=== PATIENT | male | born 1970 | race Caucasian/White ===

== ENCOUNTER 2018-02-18 15:50 | Inpatient (IN) ==
[2018-02-18] MEDS ORDERED: Bisacodyl 10 MG Supp RECTAL PRN (18:10)
[2018-02-18] MEDS ORDERED: Acetaminophen 325 MG Tablet PO PRN (18:10)
[2018-02-18] MEDS ORDERED: Sodium Chlor 0.9% Inj 250 ML IV.SIG SCH ×2 (19:00→22:00)
--- NOTE | 2018-02-18 21:29 | P.HPIM ---
History of Present Illness Service: [facility] Primary Care Physician: Cara Aguila Chief Complaint: fatigue History of Present Illness: 47 y/o male with a history HTN, HLD, hemolytic anemia presented to the ER with complaints of fatigue. He was seen in the [place] [facility] and found to have a hemoglobin of 6.9 and Hemoccult positive. He states he has not been taking his iron tablets for the last 2 years. He states for the past 7 days he has been having weakness, dyspnea on exertion and fatigue that has been increasing. He states he was diagnosed 7 years ago with anemia that required a blood transfusion due to a virus and was prescribed iron tablets. He denies any chest pain, shortness of breath, fever, chills, headache , dizziness, abdominal pain. He states his stools have been dark and he does consume ibuprofen almost daily. Review of Systems Review of Systems: all other systems reviewed are negative [facility] Medical History Medical History Anemia (Acute) High cholesterol (Acute) History of blood transfusion (Acute) Surgical History Surgical History H/O hernia repair (Acute) Family History Family History Other HTN (hypertension) Social History Social History Substance History: No History of Abuse Second Hand Smoke Exposure: No Smoking Status: Former smoker How Often Do You Have a Drink Containing Alcohol: Monthly or less Recent Travel in [facility] within the Last 8 Weeks: No Recent Out of Country Travel within the Last 8 Weeks: No Immunization History Tetanus Immunization: <5 Years Hx Influenza Vaccine This Season: No Medications and Allergies Allergies Allergy/AdvReac Type Severity Reaction Status Date / Time No Known Allergies Allergy Verified 02/18/18 16:02 Home Medications Medication Instructions Recorded Confirmed Type atorvastatin [Lipitor] 20 mg PO DAILY 02/18/18 02/18/18 History olmesartan [Benicar] 40 mg PO DAILY 02/18/18 02/18/18 History Active Medications: Active Medications Acetaminophen (Tylenol) 650 mg PO Q4H PRN PRN Reason: Temp > 100.4 Al Hydroxide/Mg Hydroxide (Milk Of Magnesia Liq) 30 ml PO Q12H PRN PRN Reason: Mild Constipation Bisacodyl (Dulcolax Supp) 10 mg RECTAL DAILY PRN PRN Reason: SEVERE CONSITIPATION Sodium Chloride (Ns Inj) 250 mls @ 15 mls/hr IV.SIG ONCE [facility]ATH[facility]INE Stop: 02/19/18 11:39 Pantoprazole Sodium 80 mg/ (Sodium Chloride) 100 mls @ 10 mls/hr IV.CONT CONT CATHERINE Sodium Chloride (Ns Inj) 250 mls @ 15 mls/hr IV.SIG ONCE [facility] Stop: 02/19/18 14:39 Lactulose (Lactulose Liq) 30 ml PO DAILY PRN PRN Reason: SEVERE CONSITIPATION Ondansetron HCl (Zofran Inj) 4 mg IV.PUSH Q6H PRN PRN Reason: NAUSEA OR VOMITING Senna/Docusate Sodium (Camille-Colace) 1 tab PO BID [facility] Sennosides (Senokot) 17.2 mg PO Q12H PRN PRN Reason: Moderate Constipation Sodium Chloride (Ns Flush) 2 ml IV.FLUSH BID [facility] Sodium Chloride (Ns Flush) 2 ml IV.FLUSH PRN PRN PRN Reason: FLUSH AFTER USING IV ACCESS Physical Exam Vital signs: Intake & Output 02/16/18 02/17/18 02/18/18 02/19/18 06:59 06:59 06:59 06:59 Weight 98.8 kg Narrative: GENERAL: well nourished patient in no distress SKIN: Warm and dry. pale. EYES: No scleral icterus. No injection or drainage. NECK: Supple, trachea midline. No JVD or lymphadenopathy. CARDIOVASCULAR: Regular rate and rhythm without murmurs, gallops, or rubs. RESPIRATORY: Breath sounds equal bilaterally. No accessory muscle use. GASTROINTESTINAL: Abdomen soft, non-tender, nondistended. MUSCULOSKELETAL: No cyanosis, or edema. Moves all extremities. Caprini VTE Risk Assessment Caprini VTE Risk Assessment: No/Low Risk (score <= 1) Caprini Risk Assessment Model: Point Value = 1 Point Value = 2 Point Value = 3 Point Value = 5 Age 41-60 Minor surgery BMI > 25 kg/m2 Swollen legs Varicose veins or History of unexplained or recurrent spontaneous Oral contraceptives or hormone replacement Sepsis (< 1 month) Serious lung disease, including pneumonia (< 1 month) Abnormal pulmonary function Acute myocardial infarction Congestive heart failure (< 1 month) History of inflammatory bowel disease Medical patient at bed rest Age 61-74 Arthroscopic surgery Major open surgery (> 45 min) Laparoscopic surgery (> 45 min) Malignancy Confined to bed (> 72 hours) Immobilizing plaster cast Central venous access Age >= 75 History of VTE Family history of VTE Factor V Leiden Prothrombin [id number] Lupus anticoagulant Anticardiolipin antibodies Elevated serum homocysteine Heparin-induced thrombocytopenia Other congenital or acquired thrombophilia Stroke (< 1 month) Elective arthroplasty Hip, pelvis, or leg fracture Acute spinal cord injury (< 1 month) Prophylaxis Regimen: Total Risk Factor Score Risk Level Prophylaxis Regimen 0-1 Low Early ambulation 2 Moderate Order ONE of the following: *Sequential Compression Device (SCD) *Heparin 5000 units SQ BID 3-4 Higher Order ONE of the following medications: *Heparin 5000 units SQ TID *Enoxaparin/Lovenox 40 mg SQ daily (WT < 150 kg, CrCl > 30 mL/min) *Enoxaparin/Lovenox 30 mg SQ daily (WT < 150 kg, CrCl > 10-29 mL/min) *Enoxaparin/Lovenox 30 mg SQ BID (WT < 150 kg, CrCl > 30 mL/min) AND/OR *Sequential Compression Device (SCD) 5 or more Highest Order ONE of the following medications: *Heparin 5000 units SQ TID (Preferred with Epidurals) *Enoxaparin/Lovenox 40 mg SQ daily (WT < 150 kg, CrCl > 30 mL/min) *Enoxaparin/Lovenox 30 mg SQ daily (WT < 150 kg, CrCl > 10-29 mL/min) *Enoxaparin/Lovenox 30 mg SQ BID (WT < 150 kg, CrCl > 30 mL/min) AND *Sequential Compression Device (SCD) Assessment and Plan Plan 47-year-old male with a history of hypertension hyperlipidemia and hemolytic anemia presented to the ED with complaints of weakness, dyspnea on exertion, fatigue for the last 7 days. Anemia, hemoglobin 6.9 Hemoccult positive in the ED -Consult to hematology for hx of hemolytic anemia -Consult to gastroenterology for Hemoccult positive -Protonix drip -Transfuse 1 unit of packed red cells -Serial H&H -Direct Renea, iron panel and ferritin ordered Hypertension, chronic -Resume home medications, monitor vitals Hyperlipidemia -Resume home medications DVT prophylaxis: SCDs H&P: Quality VTE Deep Vein Thrombosis/Pulmonary Embolism Present on Admission: No
[2018-02-18] MEDS: Senna/Docusate Sodium 8.6/50 MG Tablet PO SCH (23:35)
[2018-02-19] MEDS: Pantoprazole Inj 80 MG in Sodium Chlor 0.9% Inj 100 ML IV.CONT SCH ×2 (01:33→12:43)
[2018-02-19 05:53] LABS: Baso # (Auto) 0.1 th/mm3 (0.0-0.2); Baso % (Auto) 1.2 % (0.0-2.0); Eos # (Auto) 0.2 th/mm3 (0.0-0.4); Eos % (Auto) 2.1 % (0.0-4.0); Hematocrit 27.5 % (39.0-51.0); Hemoglobin 8.8 gm/dL (13.0-17.0); Lymph # (Auto) 2.7 th/mm3 (1.0-4.8); Lymph % (Auto) 36.1 % (9.0-44.0); Mean Corpuscular HGB Conc 31.9 % (32.0-36.0); Mean Corpuscular Hemoglobin 23.8 pg (27.0-34.0); Mean Corpuscular Volume 74.5 fL (80.0-100.0); Mean Platelet Volume 7.1 fL (7.0-11.0); Mono # (Auto) 0.7 th/mm3 (0.0-0.9); Mono % (Auto) 8.9 % (0.0-8.0); Neut # (Auto) 3.8 th/mm3 (1.8-7.7); Neut % (Auto) 51.7 % (16.0-70.0); Platelet Count 363 th/mm3 (150-450); Red Blood Count 3.69 mil/mm3 (4.50-5.90); White Blood Count 7.4 th/mm3 (4.0-11.0)
[2018-02-19 06:25] LABS: Anion Gap 8 meq/L (5-15); Blood Urea Nitrogen 13 mg/dL (7-18); Calcium 7.5 mg/dL (8.5-10.1); Chloride 108 meq/L (98-107); Glomerular Filtration Rate Greater Than 89 mL/min (>89); Glucose,Random 80 mg/dL (74-106); Iron 40 mcg/dL (65-175); Potassium 3.6 meq/L (3.5-5.1); Sodium 142 meq/L (136-145)
[2018-02-19 06:28] LABS: % Iron Saturation 8.7 % (20-50); Complement C3 101 mg/dL (90-180); Ferritin 3 ng/mL (26-388); Total Iron Binding Capacity 458 mcg/dL (250-450)
--- NOTE | 2018-02-19 08:30 | P.PNIM ---
Subjective Interval history: f/u; anemia in no acute distress. feels better today. no abdominal pain, nausea or vomiting. no chest pain, sob or dizziness. Physical Exam Vital signs: Last Vital Signs Temp 97.8 F 02/19/18 04:00 Pulse 64 02/19/18 04:00 Resp 16 02/19/18 04:00 BP 108/57 L 02/19/18 04:00 Pulse Ox 97 02/19/18 04:00 Intake & Output 02/17/18 02/18/18 02/19/18 02/20/18 06:59 06:59 06:59 06:59 Intake Total 580 / 580 Output Total 400 / 400 Balance 180 / 180 Weight 94.7 kg Constitutional no acute distress Routine Respiratory Exam Present CTA bilaterally Routine Cardiovascular Exam Present RRR Routine Abdominal Exam Present soft Routine Extremities Exam Comments: no pedal edema. Routine Neurological Exam Present alert and oriented X3 Results Labs CBC & Chem 7: 02/19/18 03:50 02/19/18 03:50 Assessment and Plan Plan A/P Anemia- due to acute blood loss - iron deficiency Hemoccult positive in the ED -s/p PRBC transfusion with improved H/H -Consulted hematology for hx of hemolytic anemia -Consulted gastroenterology for Hemoccult positive -Protonix drip Hypertension, chronic -Resume home medications when meds verified, monitor vitals Hyperlipidemia -Resume home medications when verified. DVT prophylaxis: SCDs Progress Note: Quality VTE Deep Vein Thrombosis/Pulmonary Embolism Present on Admission: No
[2018-02-19] MEDS: Senna/Docusate Sodium 8.6/50 MG Tablet PO SCH ×2 (09:13→20:34)
--- NOTE | 2018-02-19 10:28 | P.CONGI ---
History of Present Illness Consult date: 02/19/18 Consult reason: Heme positive stool Chief complaint: Anemia requiring Transfusion History of Present Illness: This patient is a 47-year-old male with past medical history significant for hypertension, hyperlipidemia and iron deficiency anemia. Patient presented to the emergency room in [place] with report of generalized weakness and fatigue. Patient was found to have a hemoglobin of 6.9(which he was transfused with 1 unit of packed RBCs) and Hemoccult positive stools. Upon consultation, patient reports that he was diagnosed with iron deficiency anemia 15 years ago. Patient states he has required blood transfusion x1 in the past. States he had EGD and colonoscopy done in 2011 which revealed H. pylori. Patient states he was put on antibiotics from 7-14 days and was retested for cure. Patient endorses last EGD was done in 2014 with normal findings per his recollection. He endorses that he stopped taking iron supplements 2-1/2 years ago and then restarted 5 days ago after symptoms of weakness and fatigue persisted. Patient endorses generalized weakness and fatigue for 10-14 days. States that he has had black tarry stools for the last 5-6 days. Patient endorses epigastric burning pain on occasion for which he takes Tums. 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 Patient also endorses the use of ibuprofen for headaches. He states that over the last 3-4 weeks he has been taking 800 mg p.o. twice daily for neck and headaches that he feels may be attributed to his elevated blood pressure for which he takes Benicar/HCTZ. Our service has been consulted to evaluate patient for Hemoccult positive stools. <Shazia Jo - Last Filed: 02/19/18 19:24> Review of Systems All other systems reviewed negative except as stated in HPI <Shazia Jo - Last Filed: 02/19/18 19:24> PMFSH - History History Provided By: Patient, Medical Record - Medical History Medical History: Medical History (Last Reviewed 02/18/18 @ 23:10 by VANI Mcnulty) Anemia High cholesterol History of blood transfusion - Surgical History Surgical History: Surgical History (Last Reviewed 02/18/18 @ 23:11 by VANI Mcnulty) H/O hernia repair - Family History Family History: Family History (Last Reviewed 02/18/18 @ 23:11 by VANI Mcnulty) Other HTN (hypertension) - Tobacco History Second Hand Smoke Exposure: No Tobacco Use In Past 30 Days: No Smoking Status: Former smoker - Alcohol History How Often Do You Have a Drink Containing Alcohol: Monthly or less - Substance Use History Substance History: No History of Abuse - Travel History Recent Travel in the [place] Within the Last 8 Weeks: No Recent Travel Out of the Country Within the Last 8 Weeks: No - Immunization History Tetanus Immunization: <5 Years Hx Influenza Vaccine This Season: No <Shazia Jo - Last Filed: 02/19/18 19:24> - Medical History Medical History: Medical History (Last Reviewed 02/18/18 @ 23:10 by VANI Mcnulty) Anemia High cholesterol History of blood transfusion - Surgical History Surgical History: Surgical History (Last Reviewed 02/18/18 @ 23:11 by VANI Mcnulty) H/O hernia repair - Family History Family History: Family History (Last Reviewed 02/18/18 @ 23:11 by VANI Mcnulty) Other HTN (hypertension) <Jasson Aggarwal - Last Filed: 02/20/18 08:45> Medications and Allergies Active Medications: Active Medications Acetaminophen (Tylenol) 650 mg PO Q4H PRN PRN Reason: Temp > 100.4 Al Hydroxide/Mg Hydroxide (Milk Of Magnesia Liq) 30 ml PO Q12H PRN PRN Reason: Mild Constipation Bisacodyl (Dulcolax Supp) 10 mg RECTAL DAILY PRN PRN Reason: SEVERE CONSITIPATION Sodium Chloride (Ns Inj) 250 mls @ 15 mls/hr IV.SIG ONCE CATHERINE Stop: 02/19/18 11:39 Last Infusion: 02/19/18 06:12 Dose: Infused Pantoprazole Sodium 80 mg/ (Sodium Chloride) 100 mls @ 10 mls/hr IV.CONT CONT CATHERINE Last Admin: 02/19/18 01:33 Dose: 10 mls/hr Sodium Chloride (Ns Inj) 250 mls @ 15 mls/hr IV.SIG ONCE CATHERINE Stop: 02/19/18 14:39 Last Admin: 02/18/18 23:36 Dose: Not Given Lactulose (Lactulose Liq) 30 ml PO DAILY PRN PRN Reason: SEVERE CONSITIPATION Ondansetron HCl (Zofran Inj) 4 mg IV.PUSH Q6H PRN PRN Reason: NAUSEA OR VOMITING Senna/Docusate Sodium (Camille-Colace) 1 tab PO BID [facility] Last Admin: 02/19/18 09:13 Dose: Not Given Sennosides (Senokot) 17.2 mg PO Q12H PRN PRN Reason: Moderate Constipation Sodium Chloride (Ns Flush) 2 ml IV.FLUSH BID [facility] Last Admin: 02/19/18 09:10 Dose: Not Given Sodium Chloride (Ns Flush) 2 ml IV.FLUSH PRN PRN PRN Reason: FLUSH AFTER USING IV ACCESS <Shazia Jo - Last Filed: 02/19/18 19:24> Active Medications: Active Medications Acetaminophen (Tylenol) 650 mg PO Q4H PRN PRN Reason: Temp > 100.4 Al Hydroxide/Mg Hydroxide (Milk Of Magnesia Liq) 30 ml PO Q12H PRN PRN Reason: Mild Constipation Bisacodyl (Dulcolax Supp) 10 mg RECTAL DAILY PRN PRN Reason: SEVERE CONSITIPATION Pantoprazole Sodium 80 mg/ (Sodium Chloride) 100 mls @ 10 mls/hr IV.CONT CONT [facility] Last Admin: 02/20/18 02:15 Dose: 10 mls/hr Iron Sucrose 200 mg/ Sodium (Chloride) 110 mls @ 110 mls/hr IV.SIG DAILY [facility] Stop: 02/21/18 09:59 Last Infusion: 02/19/18 15:40 Dose: Infused Lactulose (Lactulose Liq) 30 ml PO DAILY PRN PRN Reason: SEVERE CONSITIPATION Ondansetron HCl (Zofran Inj) 4 mg IV.PUSH Q6H PRN PRN Reason: NAUSEA OR VOMITING Senna/Docusate Sodium (Camille-Colace) 1 tab PO BID [facility] Last Admin: 02/19/18 20:34 Dose: Not Given Sennosides (Senokot) 17.2 mg PO Q12H PRN PRN Reason: Moderate Constipation Sodium Chloride (Ns Flush) 2 ml IV.FLUSH BID [facility] Last Admin: 02/19/18 20:34 Dose: 2 ml Sodium Chloride (Ns Flush) 2 ml IV.FLUSH PRN PRN PRN Reason: FLUSH AFTER USING IV ACCESS <LorengladysJanieJasson - Last Filed: 02/20/18 08:45> Allergies Allergy/AdvReac Type Severity Reaction Status Date / Time No Known Allergies Allergy Verified 02/18/18 16:02 Home Medications Medication Instructions Recorded Confirmed Type atorvastatin [Lipitor] 20 mg PO DAILY 02/18/18 02/18/18 History olmesartan [Benicar] 40 mg PO DAILY 02/18/18 02/18/18 History Exam Vital signs: Vital Signs 02/18/18 20:00 02/18/18 22:33 02/18/18 22:48 Temperature 97.8 F 97.9 F 97.9 F Pulse Rate 79 82 83 Respiratory Rate 17 20 20 Blood Pressure 112/58 L 102/60 102/60 Pulse Oximetry 98 98 98 02/18/18 23:04 02/19/18 01:38 02/19/18 04:00 Temperature 97.9 F 97.3 F L 97.8 F Pulse Rate 78 78 64 Respiratory Rate 20 18 16 Blood Pressure 101/57 L 111/63 108/57 L Pulse Oximetry 97 98 97 02/19/18 08:00 Temperature 97.9 F Pulse Rate 73 Respiratory Rate 16 Blood Pressure 115/57 L Pulse Oximetry 97 Intake & Output 02/18/18 02/19/18 02/19/18 18:59 06:59 18:59 Intake Total 580 / 580 Output Total 400 / 400 Balance 180 / 180 Weight 94.7 kg Intake: IV 100 / 100 NS Inj 250 ML @ 15 mls/hr IV. 100 / 100 SIG ONCE [facility] Rx#:[id number] Oral 480 / 480 Intake (Blood Product) Amt 0 / 0 Rbc As-3 Leukoreduced Unit 0 / 0 [id number] Output: Urine 400 / 400 Other: Date of Last Bowel Movement 02/17/18 # Bowel Movements 0 Weight On Admission 93.8 kg - Constitutional no acute distress - Routine HEENT Exam Head: Present: normocephalic - Routine Respiratory Exam Present: CTA bilaterally. Absent: accessory muscle use - Routine Cardiovascular Exam Present: RRR, S1, S2 - Routine Extremities Exam Present: pulses intact. Absent: cyanosis, clubbing, edema - Routine Skin Exam Present: dry, warm. Absent: pallor - Routine Neurological Exam Present: alert, oriented X3 <SandroShazia - Last Filed: 02/19/18 19:24> Vital signs: Vital Signs 02/19/18 10:40 02/19/18 12:00 02/19/18 16:00 Temperature 97.3 F L 98.1 F Pulse Rate 67 81 Respiratory Rate 18 18 Blood Pressure 104/62 100/59 L Pulse Oximetry 95 98 96 02/19/18 20:00 02/19/18 23:50 02/20/18 04:00 Temperature 98.4 F 97.8 F 97.9 F Pulse Rate 82 82 77 Respiratory Rate 16 16 16 Blood Pressure 98/55 L 97/56 L 97/51 L Pulse Oximetry 98 96 97 Intake & Output 02/19/18 02/20/18 02/20/18 18:59 06:59 18:59 Intake Total 410 / 410 1660 / 1660 Output Total 400 / 400 1300 / 1300 Balance 360 / 360 Weight 94.8 kg Intake: IV 210 / 210 100 / 100 Protonix Inj 80 MG In NS Inj 100 / 100 100 / 100 100 ML @ 10 mls/hr IV.CONT CONT [facility] Rx#:[id number] Venofer Inj 200 MG In NS Inj 110 / 110 100 ML @ 110 mls/hr IV.SIG DAILY [facility] Rx#:[id number] Oral 1560 / 1560 Other 200 / 200 Output: Urine 400 / 400 1300 / 1300 Other: Date of Last Bowel Movement 02/17/18 02/19/18 # Bowel Movements 0 0 <Jasson Aggarwal - Last Filed: 02/20/18 08:45> Results - Labs CBC & Chem 7: 02/19/18 03:50 02/19/18 03:50 Labs: Laboratory Results - last 24 hr 02/18/18 02/19/18 02/19/18 18:10 03:50 03:50 WBC 7.4 RBC 3.69 L Hgb 8.8 L Hct 27.5 L MCV 74.5 L MCH 23.8 L MCHC 31.9 L RDW 18.0 H Plt Count 363 MPV 7.1 Neut % (Auto) 51.7 Lymph % (Auto) 36.1 [place] % (Auto) 8.9 H Eos % (Auto) 2.1 Baso % (Auto) 1.2 Neut # (Auto) 3.8 Lymph # (Auto) 2.7 [place] # (Auto) 0.7 Eos # (Auto) 0.2 Baso # (Auto) 0.1 WBC Differential . Differential Comment Auto diff final Sodium 142 Potassium 3.6 Chloride 108 H Carbon Dioxide 26.0 Anion Gap 8 BUN 13 Creatinine 0.70 Estimated GFR Greater than 89 Random Glucose 80 Calcium 7.5 L D Iron 40 L TIBC 458 H % Saturation 8.7 L Ferritin 3 L Complement C3 101 Complement C4 21 Direct Antiglob Test Negative MTS Gel Crossmatch See Detail <Shazia Jo - Last Filed: 02/19/18 19:24> - Labs CBC & Chem 7: 02/20/18 03:44 02/19/18 03:50 Labs: Laboratory Results - last 24 hr 02/19/18 02/20/18 15:43 03:44 Hgb 9.1 L 9.5 L Hct 28.4 L 29.9 L <Jasson Aggarwal - Last Filed: 02/20/18 08:45> Assessment and Plan (1) Anemia Status: Acute Code(s): D64.9 - Anemia, unspecified (2) Black tarry stools Status: Acute Code(s): K92.1 - Melena (3) Lower GI bleed Status: Acute Code(s): K92.2 - Gastrointestinal hemorrhage, unspecified - Plan This patient is a 47-year-old male with past medical history significant for hypertension, hyperlipidemia and iron deficiency anemia. Patient presented to the emergency room in [place] with report of generalized weakness and fatigue. Patient was found to have a hemoglobin of 6.9(which he was transfused with 1 unit of packed RBCs) and Hemoccult positive stools. Upon consultation, patient reports that he was diagnosed with iron deficiency anemia 15 years ago. Patient states he has required blood transfusion x1 in the past. States he had EGD and colonoscopy done in 2011 which revealed H. pylori. Patient states he was put on antibiotics from 7-14 days and was retested for cure. Patient endorses last EGD was done in 2014 with normal findings per his recollection. He endorses that he stopped taking iron supplements 2-1/2 years ago and then restarted 5 days ago after symptoms of weakness and fatigue persisted. Patient endorses generalized weakness and fatigue for 10-14 days. States that he has had black tarry stools for the last 5-6 days. Patient endorses epigastric burning pain on occasion for which he takes Tums. Denies nausea or vomiting. 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 Patient also endorses the use of ibuprofen for headaches. He states that over the last 3-4 weeks he has been taking 800 mg p.o. twice daily for neck and headaches that he feels may be attributed to his elevated blood pressure for which he takes Benicar/HCTZ. Our service has been consulted to evaluate patient for Hemoccult positive stools. Iron deficiency anemia Heme positive stools Lower GI bleed Patient endorses generalized weakness and fatigue for 2 weeks. Endorses history of iron deficiency anemia. Of note, patient stopped taking iron supplements 2-1/2 years ago. Hemoglobin found to be 6.9 with heme positive stools on arrival to emergency room. Patient was transfused with 1 unit of packed cells. Patient endorses epigastric burning occasionally with somewhat regular use over the last 3-4 weeks of ibuprofen 800 mg p.o. twice daily for neck and headaches. Black tarry stools for the last 5-6 days. Hemoglobin noted above found on arrival to ER. Posttransfusion WBC 7.4 hemoglobin 8.8 hematocrit 27.5 Iron 40 TIBC 458 saturation 8.7 ferritin 3 Plan -Diet as tolerated -N.p.o. after midnight -Obtain consent for EGD -Monitor for bleeding -Monitor hemoglobin hematocrit closely -Transfuse as needed -Avoid NSAIDs -Avoid anticoagulants -Continue PPI -Supportive care -Further recommendations to follow This patient has been seen by myself and Dr. Aggarwal and this note is written on his behalf - Attending Attestation Dr. Aggarwal <Shazia Jo - Last Filed: 02/19/18 19:24> (1) Anemia Status: Acute Code(s): D64.9 - Anemia, unspecified (2) Black tarry stools Status: Acute Code(s): K92.1 - Melena (3) Lower GI bleed Status: Acute Code(s): K92.2 - Gastrointestinal hemorrhage, unspecified - Attending Attestation The patient is seen and examined. I agree with the assessment and recommendations above. <Jasson Aggarwal - Last Filed: 02/20/18 08:45>
--- NOTE | 2018-02-19 10:31 | MB ---
cc: Miguelangel Rodriguez MD DATE: 02/19/2018 REQUESTING PHYSICIAN: Hospitalist. REASON FOR CONSULTATION: Evaluation of anemia. HISTORY OF PRESENT ILLNESS: A 47-year-old gentleman with hypertension and hyperlipidemia, was evaluated in [facility] ER when he was having severe weakness and tiredness and found to have a hemoglobin of 6.9 with stool occult blood positive. The patient was subsequently transferred to [facility] and admitted to the hospital. I was asked to see him for the above. Mr. Mooney gives me history of black stools for the last 4 days and has been not feeling well with weakness, tiredness, and his brother apparently pushed him to seek medical attention. Hence, he came to the hospital. He gave me the history that 5 years ago he had a similar problem requiring a blood transfusion while he was in [place] at that time. Subsequently, he was given iron, which he took until 2 years ago and stopped it on his own. He has been not compliant and he did not follow up with his physicians regarding the etiology of the iron deficiency. He did say that he had upper endoscopy at that time, which showed some infection and was treated with antibiotics for 7 days, presumably H. pylori treatment, and a repeat endoscopy after the antibiotics was negative, according to him. Subsequently, he also had a colonoscopy and that was negative according to him at that time. Currently, GI consultation is requested. REVIEW OF SYSTEMS: Negative for dizziness, blackouts, chest pains or palpitations. He does feel weak and tired. He has no fevers or night sweats. No abdominal pain or distention or blood in the. Black stools as mentioned. No constipation. No frequency, urgency, or hematuria. PAST MEDICAL HISTORY: As above. He also has hypertension and high cholesterol. PAST SURGICAL HISTORY: Bilateral inguinal hernia repair. SOCIAL HISTORY: Smoker ex-alcohol abuser. FAMILY HISTORY: Noncontributory. MEDICATIONS AT HOME: He was on Benicar and Lipitor. ALLERGIES: NO KNOWN DRUG ALLERGIES. PHYSICAL EXAMINATION: GENERAL: Young male, healthy appearing, in no apparent distress. VITAL SIGNS: Stable. He is afebrile. Severe pallor present. No icterus. LYMPHATICS: No palpable adenopathy in the neck or axilla. HEENT: No icterus noted. Without oropharyngeal lesions. No gum bleeding or hypertrophy. Alert and oriented x4. LUNGS: Clear to auscultation. HEART: No murmurs or gallops. ABDOMEN: Soft and nontender without palpable hepatosplenomegaly. No guarding. No free fluid clinically. EXTREMITIES: No petechia, ecchymosis or bruises. No evidence of DVTs. No calf tenderness. LABORATORY DATA: Reviewed and significant for hemoglobin of 6.9 yesterday on admission and after 2 units of blood transfusion came up to 8.8 with MCV of 74.5, platelets 363, white count 7.4. Iron studies significant for a serum ferritin of 3. IMPRESSION: Severe iron deficiency anemia in a gentleman with ongoing GI bleed. Advised IV iron infusion and a GI consult is ordered. The patient understands that he probably has ulcer disease or gastric varices that need to be treated and hence GI consultation will be appreciated. After correction of iron deficiency anemia. He can be discharged home and has agreed to follow up with me in the office in 2 weeks. I will ensure that my office will give him an appointment in 2 weeks with repeat CBC. Case discussed with Dr. Hernandez, hospitalist. MD CORY Oneill/ahmet , 09:49 AM , 09:59 AM
[2018-02-19] MEDS: Iron Sucrose Inj 200 MG in Sodium Chlor 0.9% Inj 100 ML IV.SIG SCH (14:33)
[2018-02-19 16:48] LABS: Hematocrit 28.4 % (39.0-51.0); Hemoglobin 9.1 gm/dL (13.0-17.0)
[2018-02-20] MEDS: Pantoprazole Inj 80 MG in Sodium Chlor 0.9% Inj 100 ML IV.CONT SCH (02:15)
[2018-02-20 05:13] LABS: Hematocrit 29.9 % (39.0-51.0); Hemoglobin 9.5 gm/dL (13.0-17.0)
--- NOTE | 2018-02-20 09:22 | P.PCN ---
Date of procedure: 02/20/18 Pre-op diagnosis: Upper GI bleed and anemia Post-op diagnosis: other (Gastric ulcer, white based, gastritis) Procedure: Indication; Upper GI bleed Procedure Performed; upper endoscopy wtih biopsy After informing the patient about procedure and possible complications consent was signed. history and physical were updated. Patient was taken to the procedure room and placed in position. Time out was completed. Adequate sedation was performed by anesthesia provider. Upper Endoscopy, the scope was placed in the mouth advanced under video guide to the second portion of the duodenum, then the scope was withdrawal to the stomach and retro-flexion was performed, the scope was withdrawal to the esophagus then out of the mouth without any immediate complication. Findings: Esophagus: Z line seen at 37 cm. Normal esophageal mucosa throughout the esophagus. Stomach: Direct and retroflex views were obtained. In the antrum 3 small punctate white based ulcers were seen. Biopsies obtained from antrum and body. Retroflex showed no hiatal hernia but did reveal polyp like appearing mucosa just distal to the Z line in the cardia. Biopsies of the area were obtained. Duodenum: Normal bulb to second portion. Impression: NSAID associated antral ulcers, white based with low risk for recurrent bleeding. Recommendations; 1- Supportive care 2- ok to transfer to recovery area then discharge per protocol 3- Standard dose oral proton pump inhibitor for 12 weeks. 5-[id number] diet 5- EGD in 12 weeks 6- Follow up in our office in 8 weeks. 7- Ready for discharge home from GI point of view. Anesthesia: MAC Surgeon: Jasson Aggarwal Pathology: other (Cardia, antrum, gastric body) Condition: stable Disposition: floor
[2018-02-20] MEDS: Iron Sucrose Inj 200 MG in Sodium Chlor 0.9% Inj 100 ML IV.SIG SCH (10:31)
[2018-02-20] MEDS: Senna/Docusate Sodium 8.6/50 MG Tablet PO SCH ×2 (10:31→20:07)
--- NOTE | 2018-02-20 11:38 | P.PNIM ---
Subjective Interval history: had EGD earlier today. in no acute distress. no active GI bleed. no abdominal pain, nausea/vomiting. Physical Exam Vital signs: Last Vital Signs Temp 97.2 F L 02/20/18 09:34 Pulse 80 02/20/18 09:34 Resp 18 02/20/18 09:34 BP 121/60 02/20/18 09:34 Pulse Ox 98 02/20/18 09:34 Intake & Output 02/18/18 02/19/18 02/20/18 02/21/18 06:59 06:59 06:59 06:59 Intake Total 580 / 580 2070 / 2070 70 / 70 Output Total 400 / 400 1700 / 1700 Balance 180 / 180 370 / 370 70 / 70 Weight 94.7 kg 94.8 kg Constitutional no acute distress Routine Respiratory Exam Present CTA bilaterally Routine Cardiovascular Exam Present RRR Routine Abdominal Exam Present soft Routine Extremities Exam Comments: no pedal edema. Routine Neurological Exam Present alert and oriented X3 Results Labs CBC & Chem 7: 02/20/18 03:44 02/19/18 03:50 Assessment and Plan (1) Anemia: Code(s): D64.9 - Anemia, unspecified Status: Acute (2) Black tarry stools: Code(s): K92.1 - Melena Status: Acute (3) Lower GI bleed: Code(s): K92.2 - Gastrointestinal hemorrhage, unspecified Status: Acute Plan A/P Anemia- due to acute blood loss - iron deficiency Hemoccult positive in the ED -s/p PRBC transfusion with improved H/H - GI consult appreciated- s/p EGD which showed antral ulcer - Hematology consult appreciated and recommended IV iron. -continue PPI. Hypertension, chronic/Hyperlipidemia -Resume home medications upon discharge. DVT prophylaxis: SCDs Discharge Planning: home tomorrow. Progress Note: Quality VTE Deep Vein Thrombosis/Pulmonary Embolism Present on Admission: No _ (1) Anemia Qualifiers: Anemia type: Iron deficiency anemia type: Vitamin B12 deficiency anemia type: Folate deficiency anemia type: Bone marrow failure anemia type: Hemolytic anemia type: Other causes of anemia: Chronic kidney disease stage :
[2018-02-21] MEDS: Senna/Docusate Sodium 8.6/50 MG Tablet PO SCH (08:44)
[2018-02-21] MEDS: Iron Sucrose Inj 200 MG in Sodium Chlor 0.9% Inj 100 ML IV.SIG SCH (08:45)
--- NOTE | 2018-02-21 09:29 | P.PNIM ---
Subjective Interval history: f/u; anemia in no acute distress. no chest pain, sob or dizziness. no acute GI bleed. wants to go home today. Physical Exam Vital signs: Last Vital Signs Temp 98.2 F 02/20/18 23:24 Pulse 78 02/20/18 23:24 Resp 16 02/20/18 23:24 BP 102/60 02/20/18 23:24 Pulse Ox 98 02/20/18 23:24 Intake & Output 02/19/18 02/20/18 02/21/18 02/22/18 06:59 06:59 06:59 06:59 Intake Total 580 / 580 2069 / 2069 1140 / 1140 Output Total 400 / 400 1700 / 1700 2049 Balance 180 / 180 370 / 370 -910 / -910 Weight 94.7 kg 94.8 kg 96.7 kg Constitutional no acute distress Routine Respiratory Exam Present CTA bilaterally Routine Cardiovascular Exam Present RRR Routine Abdominal Exam Present soft Routine Extremities Exam Comments: no pedal edema. Routine Neurological Exam Present alert and oriented X3 Results Labs CBC & Chem 7: 02/20/18 03:44 02/19/18 03:50 Assessment and Plan (1) Anemia: Code(s): D64.9 - Anemia, unspecified Status: Acute (2) Black tarry stools: Code(s): K92.1 - Melena Status: Acute (3) Lower GI bleed: Code(s): K92.2 - Gastrointestinal hemorrhage, unspecified Status: Acute Plan A/P Anemia- due to acute blood loss - iron deficiency Hemoccult positive in the ED -s/p PRBC transfusion with improved H/H - GI consult appreciated- s/p EGD which showed antral ulcer - Hematology consult appreciated and recommended IV iron. -continue PPI. Hypertension, chronic/Hyperlipidemia -Resume home medications upon discharge. DVT prophylaxis: SCDs Discharge Planning: home today. see med list. f/u; pcp and GI. d/w the patient and RN. Progress Note: Quality VTE Deep Vein Thrombosis/Pulmonary Embolism Present on Admission: No _ (1) Anemia Qualifiers: Anemia type: Iron deficiency anemia type: Vitamin B12 deficiency anemia type: Folate deficiency anemia type: Bone marrow failure anemia type: Hemolytic anemia type: Other causes of anemia: Chronic kidney disease stage :
--- NOTE | 2018-02-21 09:30 | P.DS ---
DS: Providers Date of admission: 02/18/18 19:45 Primary care physician: Cara Aguila Consults: 02/18/18 18:46 Consult to Hematology Routine Consulting Provider: Kelley Foley Reason for Consultation: hemolytic anemia Notified:: Service Spoke with:: Meera Date Notified:: 02/18/18 Time Notified:: 20:30 Ordering Provider: ROBERTH 02/18/18 21:20 Consult to Gastroenterology Routine Consulting Provider: Jasson Aggarwal Reason for Consultation: hemmocult positive Notified:: Service Spoke with:: Radhika Date Notified:: 02/18/18 Time Notified:: 22:28 Ordering Provider: NICK Brief History from admission: 47 y/o male with a history HTN, HLD, hemolytic anemia presented to the ER with complaints of fatigue. He was seen in the [place] ER and found to have a hemoglobin of 6.9 and Hemoccult positive. He states he has not been taking his iron tablets for the last 2 years. He states for the past 7 days he has been having weakness, dyspnea on exertion and fatigue that has been increasing. He states he was diagnosed 7 years ago with anemia that required a blood transfusion due to a virus and was prescribed iron tablets. He denies any chest pain, shortness of breath, fever, chills, headache , dizziness, abdominal pain. He states his stools have been dark and he does consume ibuprofen almost daily. DS: Diagnosis Discharge Diagnosis (1) Anemia: Status: Acute (2) Black tarry stools: Status: Acute (3) Lower GI bleed: Status: Acute DS: Summary Anemia- due to acute blood loss - iron deficiency Hemoccult positive in the ED -s/p PRBC transfusion with improved H/H - GI consult appreciated- s/p EGD which showed antral ulcer - Hematology consult appreciated and recommended IV iron. -continue PPI. Hypertension, chronic/Hyperlipidemia -Resume home medications upon discharge. Time Spent with Patient Total time spent providing and/or coordinating discharge services: Less than 30 minutes Quality: VTE Deep Vein Thrombosis/Pulmonary Embolism Present on Admission: No Exam Narrative Exam Narrative: in no acute distress. abdomen is soft and non-tender. on lung exam bilateral air entry present. Results Procedures completed during hospitalization: EGD. Discharge Plan Discharge Disposition Patient Disposition: Discharge Home Discharge Order Discharge Orders: Discharge Order (Routine); Ordered 02/21/18 Ordered By: Bernabe Hernandez Physicians Team Attending Provider: Bernabe Hernandez Other Providers: Jasson Aggarwal ; Miguelangel Rodriguez Rxs /Orders / Referrals /Forms Prescriptions: New ferrous sulfate 325 mg (65 mg iron) tablet 325 mg PO BID 30 Days Qty: 60 RF: 0 pantoprazole 40 mg tablet,delayed release (DR/EC) 40 mg PO DAILY Qty: 30 RF: 0 Continue atorvastatin [Lipitor] 20 mg Tablet 20 mg PO DAILY RF: 0 olmesartan [Benicar] 40 mg Tablet 40 mg PO DAILY RF: 0 Referrals: Cara Aguila [Other] - See Instructions Discharge Instructions Patient Printed Instructions: Pantoprazole (By mouth), Gastrointestinal Bleeding (DC), Iron Deficiency Anemia (DC) Status ED Status: Admitted Observation Patient Discharge Information Discharge Date/Time: 02/21/18 10:56
== END 2018-02-21 10:56 | disposition home or self-care (01) ==
LOC: NEDDLT 19:35 → N04 19:35 → OBSVTOIN 19:45
PROVIDERS: ADMIT Internal Medicine; ATTEND Internal Medicine
PROC: PANENDO (2018-02-20 08:43)